=== PATIENT | female | born 1930 | race Caucasian/White ===

== ENCOUNTER 2017-04-07 08:48 | Inpatient (IN) | payer MEDICARE ==
[~2017-04-07] VITALS: Ht 167.6 cm; Wt 46.6 kg
[2017-04-07] MEDS ORDERED: SODIUM CHLORIDE 0.9% 1,000 ML IV ONE (09:33)
[2017-04-07 09:58] LABS: HEMATOCRIT 36.3 % (34.6-47.8); HEMOGLOBIN 11.8 g/dL (11.7-16.4); WHITE BLOOD COUNT 10.6 x10^3/uL (3.4-10)
[2017-04-07] MEDS ORDERED: SODIUM CHLORIDE FLUSH 10ML SYR IVF ONE (10:00)
[2017-04-07 10:09] LABS: ASPARTATE AMINO TRANSFERASE 10 U/L (15-37); BLOOD UREA NITROGEN 14 mg/dL (7-18)
[2017-04-07 10:15] LABS: IS PT STATUS REG ER OR PRE ER? YES
[2017-04-07] MEDS ORDERED: CEFTRIAXONE PMX 1GM/50ML 50 ML IV ONE (11:30)
[2017-04-07] MEDS ORDERED: CEFTRIAXONE PMX 1GM/50ML 50 ML ONE (12:00)
[2017-04-07] MEDS ORDERED: METO200T3 PO (12:12)
[2017-04-07] MEDS ORDERED: DIGO125T PO (12:13)
[2017-04-07] MEDS ORDERED: AMLO2.5T PO (12:14)
[2017-04-07] MEDS ORDERED: LISI2.5T PO (12:14)
[2017-04-07 12:30] VITALS: BP 146/76
[2017-04-07] MEDS ORDERED: ONDANSETRON ODT 4 MG PO PRN (12:30)
[2017-04-07] MEDS ORDERED: POLYETHYLENE GLYCOL 17 GM PACKET PO PRN (12:30)
[2017-04-07] MEDS ORDERED: LABETALOL 5MG/ML, 20ML IVPush PRN (12:30)
[2017-04-07] MEDS ORDERED: ACETAMINOPHEN 325 MG TABLET PO PRN (12:30)
[2017-04-07] MEDS ORDERED: BISACODYL 10 MG SUPP PR PRN (12:30)
[2017-04-07] MEDS ORDERED: HYDROcodone/APAP 5/325 TABLET PO PRN (12:30)
[2017-04-07] MEDS ORDERED: ONDANSETRON 2MG/ML, 2ML IVPush PRN (12:30)
[2017-04-07] MEDS ORDERED: DOCUSATE 100 MG CAPSULE PO PRN (12:30)
[2017-04-07] MEDS: LACTOBACILLUS CHEW TABLET PO SCH ×2 (13:35→15:54)
[2017-04-07] MEDS: SODIUM CHLORIDE 0.9% 1,000 ML IV SCH (14:51)
[2017-04-07] MEDS: ENOXAPARIN 30 MG/0.3 ML SQ SCH (14:51)
[2017-04-07 14:52] VITALS: BP 146/76
[2017-04-07 19:45] VITALS: BP 113/75
[2017-04-08] MEDS: LACTOBACILLUS CHEW TABLET PO SCH ×5 (00:18→21:19)
[2017-04-08] MEDS: SODIUM CHLORIDE 0.9% 1,000 ML IV SCH ×3 (00:44→21:24)
[2017-04-08 03:26] VITALS: BP 121/75
[2017-04-08 05:20] LABS: HEMATOCRIT 35.7 % (34.6-47.8); HEMOGLOBIN 11.4 g/dL (11.7-16.4); WHITE BLOOD COUNT 8.3 x10^3/uL (3.4-10)
[2017-04-08 05:28] LABS: BLOOD UREA NITROGEN 5 mg/dL (7-18)
[2017-04-08 05:32] LABS: ASPARTATE AMINO TRANSFERASE 9 U/L (15-37)
[2017-04-08] MEDS: ASPIRIN 325 MG TABLET EC PO SCH (06:46)
[2017-04-08 08:27] VITALS: BP 117/72
[2017-04-08 10:55] VITALS: BP 122/68
[2017-04-08] MEDS: METOPROLOL SUCCINATE 100 MG TAB.ER.24H PO SCH (11:09)
[2017-04-08] MEDS: AMLODIPINE 2.5 MG TABLET PO SCH (11:10)
[2017-04-08] MEDS: LISINOPRIL 5 MG TABLET PO SCH (11:10)
[2017-04-08] MEDS: DIGOXIN 0.125 MG TABLET PO SCH (11:10)
[2017-04-08] MEDS: CEFTRIAXONE PMX 1GM/50ML 50 ML IV SCH (12:39)
[2017-04-08 13:48] VITALS: BP 105/65
[2017-04-08] MEDS: ENOXAPARIN 30 MG/0.3 ML SQ SCH (13:50)
[2017-04-08] MEDS ORDERED: POLYETHYLENE GLYCOL 17 GM PACKET PO PRN (16:30)
[2017-04-08] MEDS ORDERED: LABETALOL 5MG/ML, 20ML IVPush PRN (16:30)
[2017-04-08] MEDS ORDERED: ACETAMINOPHEN 325 MG TABLET PO PRN (16:30)
[2017-04-08] MEDS ORDERED: BISACODYL 10 MG SUPP PR PRN (16:30)
[2017-04-08] MEDS ORDERED: HYDROcodone/APAP 5/325 TABLET PO PRN (16:30)
[2017-04-08] MEDS ORDERED: ONDANSETRON ODT 4 MG PO PRN (16:30)
[2017-04-08] MEDS ORDERED: DOCUSATE 100 MG CAPSULE PO PRN (16:30)
[2017-04-08] MEDS ORDERED: ONDANSETRON 2MG/ML, 2ML IVPush PRN (16:30)
[2017-04-08 18:46] VITALS: BP 107/66
[2017-04-09 02:02] VITALS: BP 147/67
[2017-04-09] MEDS: ASPIRIN 325 MG TABLET EC PO SCH (06:40)
[2017-04-09] MEDS: LACTOBACILLUS CHEW TABLET PO SCH ×2 (06:40→12:18)
[2017-04-09] MEDS: SODIUM CHLORIDE 0.9% 1,000 ML IV SCH (07:00)
[2017-04-09 07:04] VITALS: BP 150/77
[2017-04-09] MEDS: AMLODIPINE 2.5 MG TABLET PO SCH (09:10)
[2017-04-09] MEDS: DIGOXIN 0.125 MG TABLET PO SCH (09:10)
[2017-04-09] MEDS: METOPROLOL SUCCINATE 100 MG TAB.ER.24H PO SCH (09:11)
[2017-04-09] MEDS: LISINOPRIL 5 MG TABLET PO SCH (09:11)
[2017-04-09] MEDS ORDERED: ASPI-650 PO (11:22)
[2017-04-09] MEDS ORDERED: CEFD300C37 PO ×2 (11:22→11:30)
[2017-04-09] MEDS ORDERED: ACID1TAB7 PO ×2 (11:22→11:32)
[2017-04-09] MEDS: CEFTRIAXONE PMX 1GM/50ML 50 ML IV SCH (12:18)
[2017-04-09 13:23] VITALS: BP 105/68
[2017-04-09] MEDS ORDERED: SODIUM CHLORIDE 0.9% 1,000 ML IV SCH (16:30)
== END 2017-04-09 14:15 | disposition home or self-care (01) | DRG 308 ==
LOC: ED 09:15 → EDIP 11:48 → 4NOR 12:50 → DCLOUNGE 04-09 14:05
PROVIDERS: ADMIT Hospitalist; ATTEND Hospitalist
DX: I48.2 Chronic atrial fibrillation (principal); E43 Unspecified severe protein-calorie malnutrition; N39.0 Urinary tract infection, site not specified; D68.69 Other thrombophilia; E87.1 Hypo-osmolality and hyponatremia; Z68.1 Body mass index [BMI] 19.9 or less, adult; E86.0 Dehydration; I10 Essential (primary) hypertension; R73.9 Hyperglycemia, unspecified; Z51.5 Encounter for palliative care; Z66 Do not resuscitate; Z85.51 Personal history of malignant neoplasm of bladder; Z93.6 Other artificial openings of urinary tract status; J44.9 Chronic obstructive pulmonary disease, unspecified; R91.1 Solitary pulmonary nodule
CPT/HCPCS: 36415; 71010; 80053; 80162; 81001; 83880; 84484; 85025; 85610; 85730; 87077; 87086; 87186; 93005; 96361; 96365; 96366; J0696; J1650; J7030